=== PATIENT | female | born 2000 | race Caucasian/White ===

== ENCOUNTER 2023-09-15 09:33 | Emergency (ER) | payer OTHER ==
[2023-09-15 09:52] VITALS: RESP 17; BMI 33.2
[2023-09-15] MEDS: ACETAMINOPHEN 500 MG TABLET (FP) PO ONE (10:03)
[2023-09-15] MEDS ORDERED: ACETAMINOPHEN 500 MG TABLET (FP) ONE (10:07)
[2023-09-15 13:24] VITALS: BP 116/60; PULSE 89; TEMP 97.9
== END 2023-09-15 13:22 | disposition home or self-care (01) ==
LOC: JER 09:33
DX: Z04.1 Encounter for examination and observation following transport accident (principal); V49.40XA Driver injured in collision with unspecified motor vehicles in traffic accident, initial encounter; Z3A.29 29 weeks gestation of pregnancy
CPT/HCPCS: 76815; 99284-25